=== PATIENT | male | born 1990 | race Two or more races ===

== ENCOUNTER 2025-05-15 18:35 | Emergency (ER) | payer BC, MEDICAID, SELFPAY ==
[2025-05-15 19:23] VITALS: BP 126/83; PULSE 105; RESP 18; TEMP 37.3; O2SAT 99
[2025-05-15 19:24] VITALS: BMI 26.6
--- NOTE | 2025-05-15 20:13 | EDNOTE_ITS ---
ED Skin Abcess FB-RME/HPI General Chief complaint: Skin/Abscess/Foreign Body Stated complaint: DRY, PATCHY SKIN RJ ELBOWS/KNEES Time Seen by Provider: 05/15/25 19:49 Arrival date/time: 05/15/25 18:35 34M with no significant PMH presents to ED with intermittent dry/scaly patches on elbows and knees. Patient has tried different creams from PCP w/o relief. Patient has not seen specialist. Limitations: no limitations Related Data Allergies Allergy/AdvReac Type Severity Reaction Status Date / Time No Known Allergies Allergy Verified 05/15/25 18:37 Review of Systems Review of Systems Systems Reviewed: All systems reviewed, normal except as documented Integumentary/Breasts Skin/Breast: Reports as per HPI and Reports rash Past Medical History Past Medical History CARDIAC: Negative Cardiac Disorders or Congestive Heart Failure RESPIRATORY: Negative Chronic Obstructive Pulmonary Disease (COPD) or Asthma GENITOURINARY: Negative Renal Disease ENDOCRINE: Negative Diabetes Mellitus Type 1 or Diabetes Mellitus Type 2 HEMATOLOGIC: Negative Sickle Cell Disease Social History SMOKING STATUS: Never smoker ED Exam General Limitations: Present no limitations General appearance: Present alert and in no apparent distress Head Head exam: Present atraumatic Neck Neck exam: Present normal inspection, full ROM and trachea midline Chest Chest inspection: Present normal inspection and symmetric chest wall rise Extremities Exam Extremities exam: Present normal inspection and full ROM Neurological Exam Neurological exam: Present alert and oriented X3 Psychiatric Psychiatric exam: Present normal affect and normal mood Skin Skin exam: Present warm, dry, intact, normal color and rash Course Quality Measures none Vital Signs Vital signs: Vital Signs Temperature 99.1 F 05/15/25 19:23 Pulse Rate 105 H 05/15/25 19:23 Respiratory Rate 18 05/15/25 19:23 Blood Pressure 126/83 05/15/25 19:23 Pulse Oximetry (%) 99 05/15/25 19:23 Oxygen Delivery Method Room Air 05/15/25 19:23 O2 at 99% on RA and WNLs Skin / Abscess / Foreign Body MDM Narrative MDM Narrative:: 34M with no significant PMH presents to ED with intermittent dry/scaly patches on elbows and knees. Patient has tried different creams from PCP w/o relief. Patient has not seen specialist. Physical exam reveals discrete scaly/silver patches on elbows and knees (extensor surfaces). Patient is afebrile, calm, and alert. Counseled need to see dye box operator/corporate services manager for official diagnosis of psoriasis and likely systemic treatment. Patient data External records reviewed:: [facility] previous records Clinical information provided by:: patient Social determinants that could affect healthcare access:: none Patient has the following chronic illnesses:: none How is presenting disease/condition affected by chronic disease/condition?: no chronic disease Evaluation data The following diagnostics were reviewed and interpreted by me:: other (specify) (none) Lab and/or radiology exams considered but not ordered:: not ordered Interpretation Summary: n/a Medications / Prescriptions Medications or Prescriptions considered but not ordered:: not ordered Medication administrations:: n/a Consultations Consultation(s) initiated? (list below): No Diagnosis Skin/Abscess Differential Diagnosis: abscess of skin or subcutaneous tissue, viral exanthem, dermatophytosis, urticaria, herpes zoster, allergic reaction to drug, cellulitis, eczema, insect bites, impetigo, contact dermatitis and other (psoriasis) Most likely diagnosis given after review of the tests above:: psoriasis Admission Indicated Admission indicated?: not indicated Admission Request Was there a request for admission?: No Disposition Plan Disposition Plan: Discharge Discharge Attestation Discharge Attestation: The patient and all family members were given an opportunity to ask questions and understood the discharge instructions. Discharge instructions specifically effects, indications for sooner follow up or return to the emergency department, and the expected course of current diagnosis. Patient condition: Stable Discharge Plan Plan Patient Disposition: HOME (Self Care) Discharge Disposition comment: Stable Problem List Clinical Impression: Psoriasis Patient/Caregiver Discharge Instructions Education Materials: What Is Psoriasis?, Managing Psoriasis, ED Psoriasis Additional Instructions: Please follow-up with PCP within 24-48 hours and return immediately if symptoms worsen. Need to see dye box operator/corporate services manager for management. Print Language: Salvadorean Stand Alone Forms: Patient Portal Info Letter LOIS/ALLIE Supervising Physician LOIS/ALLIE Supervising Physician: Dr. Prater
== END 2025-05-15 20:00 | disposition home or self-care (01) ==
PROVIDERS: Emergency Provider Emergency Medicine
DX: L40.9 Psoriasis, unspecified (principal)
CPT/HCPCS: 99281

== ENCOUNTER 2025-07-03 11:33 | Emergency (ER) | payer OTHER, SELFPAY ==
[2025-07-03 11:45] VITALS: BP 134/82; PULSE 105; RESP 19; TEMP 36.5; O2SAT 96
--- NOTE | 2025-07-03 11:45 | PC.NURSE ---
Pt. here from work to bed 3, pt. cut his 2nd,3rd,4th right fingers off on tractor fan at work. Pt. states he was wiping leaves off the fan. Pt.'s boss Rox here bedside with pt. Pt. states pain to right 3 fingers is a 9/10. Pt. brought the top to 1 finger in water in a water bottle. Pt. calm and relaxed at this time.
--- NOTE | 2025-07-03 11:46 | XR_ITS ---
Examination: Hand, right 3 views Technique: Hand AP, oblique, lateral 3 views Date and time of exam: July 03, 2025, 1147 hours INDICATIONS: Amputation lacerations today. FINDINGS: Amputation second digit at the level of the proximal aspect distal phalanx Amputation third digit, comminuted fractures displaced off the distal aspect middle phalanx third digit Amputation with small fracture fragments distal phalanx fourth digit No dislocation IMPRESSION: Amputation fractures second third and fourth digits
--- NOTE | 2025-07-03 12:01 | PD.EDWOUND ---
ED Wound/Laceration-RME/HPI General Chief Complaint: Wound/Laceration Stated Complaint: CUT OFF 3 FINGERS IN FAN ON TRACTOR Time Seen by Provider: 07/03/25 11:41 Arrival date/time: 07/03/25 11:33 RME / HPI RME / HPI narrative: 34 year old male with no stated medical history presents to the ED for evaluation of right hand injury today occurring prior to arrival. States he was cleaning a tractor fan when he accidentally got too close, resulting in injury to the second third and fourth digits. No other injuries reported. States his last tetanus was ~ 10 years ago. Related Data Allergies Allergy/AdvReac Type Severity Reaction Status Date / Time No Known Allergies Allergy Verified 07/03/25 11:37 Review of Systems Review of Systems Systems Reviewed: All systems reviewed, normal except as documented Past Medical History Past Medical History CARDIAC: Negative Cardiac Disorders or Congestive Heart Failure RESPIRATORY: Negative Chronic Obstructive Pulmonary Disease (COPD) or Asthma GENITOURINARY: Negative Renal Disease ENDOCRINE: Negative Diabetes Mellitus Type 1 or Diabetes Mellitus Type 2 HEMATOLOGIC: Negative Sickle Cell Disease Social History SMOKING STATUS: Never smoker ED Exam Narrative Physical exam: GENERAL APPEARANCE: alert and oriented x 4, well-developed, well-nourished HEENT: Normocephalic, atraumatic; pupils equal, round, reactive to light; EOMI; mucous membranes pink, moist; oropharynx clear NECK: Supple LUNGS: CTABL; no wheezes, no rales, no rhonchi HEART: Regular rate, regular rhythm; normal S1, S2; no murmurs ABDOMEN: non distended; normal BS; soft, no tenderness, no guarding, no rebound; no masses, no organomegaly, no hernia EXTREMITIES: Missing fingertips of the right hand digits 2 3 and 4, the distal phalanges are fractures, exposed, and avulsed. The avulsion includes nail and nail bed to digits 2 3 4. The distal phalange on the third finger was dislocated and reduced to normal anatomical position ; no edema NEUROLOGIC: awake; alert and oriented x4 PSYCHIATRIC: appropriate mood and affect SKIN: warm, dry, normal color; no rashes Course Quality Measures none Orders Category Date Time Status Referral - Reeling Operator Stat Cons 07/03/25 12:58 Active XR hand comp RT min 3V Stat Exams 07/03/25 11:46 Completed Drug Screen,Urine Stat Lab 07/03/25 14:51 Completed LORazepam [Ativan Inj] Med 07/03/25 14:31 Discontinued 1 mg IVP X1 ONE Lidocaine 1% Vial 20 ml [Xylocaine 1% 20 ML] Med 07/03/25 12:10 Discontinued 20 ml INFL X1 ONE Morphine* Inj Med 07/03/25 11:45 Discontinued 4 mg IVP X1 ONE Morphine* Inj Med 07/03/25 14:10 Discontinued 4 mg IVP X1 ONE Ondansetron Inj [Zofran Inj] Med 07/03/25 11:45 Discontinued 4 mg IVP X1 ONE Ondansetron Inj [Zofran Inj] Med 07/03/25 14:10 Discontinued 4 mg IVP X1 ONE TET,DIP/PERT AC (Adult)-Tdap [Boostrix Adult (Tdap) Med 07/03/25 11:45 Discontinued Vacc] 0.5 ml IMI .ONCE ONE ceFAZolin/D5W 2 GM IV [Ancef 2gm Ivpb] Med 07/03/25 11:45 Discontinued 2 gm in 100 ml IV X1 Vital Signs Vital signs: Vital Signs Temperature 97.7 F 07/03/25 11:45 Pulse Rate 105 H 07/03/25 11:45 Respiratory Rate 19 07/03/25 11:45 Blood Pressure 134/82 H 07/03/25 11:45 Pulse Oximetry (%) 96 07/03/25 11:45 Oxygen Delivery Method Room Air 07/03/25 11:45 Pulse ox is 96% on room air which is adequate. PROCEDURES: Nerve Block Nerve Block 1: Time out performed: No Local Anesthetic: lidocaine 1% Amount of anesthesia used (mL): 7 Side: right (hand, second third and fourth digits ) Nerve Blocks: digital Procedure Successful: Yes Patient Tolerated Procedure: well and no complications Complications: none Wound / Laceration MDM Narrative MDM Narrative:: IJohanne, dao scribing for and in the presence of Dr. Torres. 1216: Transfer nurse made aware of plan to transfer to a facility with ortho and hand surgeon. 1356: I spoke with ortho Dr. Castellanos at [facility]. Discussed patients PMHx, HPI, ED course, exam findings, and radiology results. Patient is accepted for transfer. Patient data External records reviewed:: [facility] previous records Clinical information provided by:: patient Social determinants that could affect healthcare access:: none Patient has the following chronic illnesses:: None reported How is presenting disease/condition affected by chronic disease/condition?: no chronic disease Evaluation data The following diagnostics were reviewed and interpreted by me:: radiology exam(s) Lab and/or radiology exams considered but not ordered:: None Interpretation Summary: Ordering Physician: Khadijah Torres MD Date of Service: 07/03/25 Procedure(s): XR hand comp RT min 3V Accession Number(s): [id number] cc: Rinku Oleary MD; Khadijah Torres MD~ Examination: Hand, right 3 views Technique: Hand AP, oblique, lateral 3 views Date and time of exam: July 03, 2025, 1147 hours INDICATIONS: Amputation lacerations today. FINDINGS: Amputation second digit at the level of the proximal aspect distal phalanx Amputation third digit, comminuted fractures displaced off the distal aspect middle phalanx third digit Amputation with small fracture fragments distal phalanx fourth digit No dislocation IMPRESSION: Amputation fractures second third and fourth digits Dictated By: Rinku Oleary MD Signed By: <Electronically signed by Rinku Oleary MD in OV> 07/03/25 1209 Medications / Prescriptions Medications or Prescriptions considered but not ordered:: None Medication administrations:: Medication Administration History Discontinued Medications Diphtheria/Tetanus/Acell Pertussis (Diphth,Pertuss(Acell),Tet Vac 0.5 Ml Syr- Adult) 0.5 ml IMi .ONCE ONE Stop: 07/03/25 11:46 Last Admin: 07/03/25 12:21 Dose: 0.5 ml Documented By: ED Cefazolin Sodium (Ancef 2gm Ivpb) 2 gm in 100 mls @ 200 mls/hr IV X1 ONE Stop: 07/03/25 12:14 Last Infusion: 07/03/25 13:02 Dose: Infused Documented By: Admin: 07/03/25 12:32 Dose: 200 mls/hr Documented By: ED Lidocaine HCl (Lidocaine Hcl 1% 20 Ml Vial) 20 ml INFL X1 ONE Stop: 07/03/25 12:11 Last Admin: 07/03/25 13:20 Dose: 20 ml Documented By: ED Comments: used by Dr. Torres and Dr. Velasco. Lorazepam (Lorazepam 2 Mg/Ml Vial) 1 mg IVP X1 ONE Stop: 07/03/25 14:32 Last Admin: 07/03/25 14:37 Dose: 1 mg Documented By: ED Morphine Sulfate (Morphine Sulf Inj 4 Mg/Ml Vial) 4 mg IVP X1 ONE Stop: 07/03/25 11:46 Last Admin: 07/03/25 12:20 Dose: 4 mg Documented By: ED Morphine Sulfate (Morphine Sulf Inj 4 Mg/Ml Vial) 4 mg IVP X1 ONE Stop: 07/03/25 14:11 Last Admin: 07/03/25 14:18 Dose: 4 mg Documented By: ED Ondansetron HCl (Ondansetron Inj 2 Mg/Ml Inj 2 Ml) 4 mg IVP X1 ONE Stop: 07/03/25 11:46 Last Admin: 07/03/25 12:17 Dose: 4 mg Documented By: ED Ondansetron HCl (Ondansetron Inj 2 Mg/Ml Inj 2 Ml) 4 mg IVP X1 ONE; Protocol Stop: 07/03/25 14:11 Last Admin: 07/03/25 14:14 Dose: 4 mg Documented By: ED See above Consultations Consultation(s) initiated? (list below): Yes Consultation #1 (Physician, Specialty, Details): See MDM Diagnosis Wound Differential Diagnosis: laceration and avulsion of skin Most likely diagnosis given after review of the tests above:: Traumatic avulsion Open fracture right hand fingers 2, 3, and 4 Admission Indicated Admission indicated?: not indicated Admission Request Was there a request for admission?: No Disposition Plan Disposition Plan: Transfer Discharge Plan Plan Patient Disposition: [facility] Facility Pt Being Transferred to: [facility] Service Needed for Transfer: Orthopedics Patient condition on transfer: Stable Prescriptions/Referrals Referrals: No Primary/Family,Physician [Primary Care Provider] - In 1 week Problem List Clinical Impression: Traumatic avulsion of nail plate of finger, Open fracture of right hand Impression comment: Open fracture of right hand fingers 2, 3, and 4 Patient/Caregiver Discharge Instructions Print Language: Greek Stand Alone Forms: Ivy Award Info., Patient Portal Info Letter
[2025-07-03] MEDS: ONDANSETRON INJ 2 MG/ML INJ 2 ML 4 MG IVP ×2 (12:17→14:14)
[2025-07-03] MEDS: MORPHINE SULF INJ 4 MG/ML VIAL IVP ×2 (12:20→14:18)
[2025-07-03] MEDS: DIPHTH,PERTUSS(ACELL),TET VAC 0.5 ML SYR- ADULT IMi (12:21)
[2025-07-03] MEDS: ceFAZolin/D5W 2 GM IV 2 GM/100 ML BAG IV (12:32)
--- NOTE | 2025-07-03 13:05 | PC.NURSE ---
Dressing applied to pt.'s right 2nd,3rd and 4th fingers wet to dry per Dr. Torres's instructions. Pt. tolerated well. Pt.'s and pt.'s boss are bedside.
--- NOTE | 2025-07-03 13:17 | PC.CC ---
Spoke with Dr. Torres, she is requesting a transfer for ortho transfer for this patient.
[2025-07-03] MEDS: LIDOCAINE HCL 1% 20 ML VIAL INFL (13:20)
--- NOTE | 2025-07-03 13:36 | PC.CC ---
Sent transfer packet to [facility] transfer center.
--- NOTE | 2025-07-03 13:55 | PC.CC ---
Addendum entered by Hillary Salmon, RN 07/03/25 15:24: @1444 received call from Lenora in the transfer center at [facility]. Per Lenora, patient was accepted ED to ED with Dr. Marcos accepting. Report to [phone]. Dr. Torres notified of acceptance Original Note: Called [facility]'s transfer center and spoke with Kierra regarding transfer. Kierra requested to speak with Dr. Torres, transferred call.
[2025-07-03 14:04] VITALS: BP 142/99; PULSE 110; RESP 13; TEMP 37.7; O2SAT 97
--- NOTE | 2025-07-03 14:16 | PC.NURSE ---
Eden with [employer] insurance called [phone], pt. states it's ok to give her information, Rox leonard states that is the company's insurance, gave all requested information, Eden states thank you.
--- NOTE | 2025-07-03 14:30 | PC.NURSE ---
informed Dr. Torres that pt.'s heart rate is 130's to 140's.
[2025-07-03 14:32] VITALS: PULSE 135
[2025-07-03] MEDS: LORazepam 2 MG/ML VIAL 1 MG IVP (14:37)
[2025-07-03 15:25] LABS: Amphetamine/Methamp Scrn,U Negative (Negative); Barbiturate Screen,Urine Negative (Negative); Benzodiazepines Screen,Urine Negative (Negative); Benzoylecgonine Screen, Ur Negative (Negative); Fentanyl Screen,Urine Negative (Negative); Opiate Screen,Urine Positive (Negative); THC Screen,Urine Negative (Negative)
[2025-07-03 16:29] VITALS: BP 120/94; PULSE 127; RESP 17; TEMP 37; O2SAT 96
--- NOTE | 2025-07-03 17:33 | PC.NURSE ---
gave report to silo tender Dangelo with [facility], Dangelo taking pt. to [facility].
--- NOTE | 2025-07-03 17:35 | PC.NURSE ---
called [facility] [phone] spoke with Gayle CLEMONS and gave her report, answered all her questions, she states thank you. Informed her pt. was just going out the back door.
== END 2025-07-03 17:35 | disposition short-term general hospital (02) ==
PROVIDERS: Emergency Provider Emergency Medicine
DX: S68.120A Partial traumatic metacarpophalangeal amputation of right index finger, initial encounter (principal); S68.122A Partial traumatic metacarpophalangeal amputation of right middle finger, initial encounter; S68.124A Partial traumatic metacarpophalangeal amputation of right ring finger, initial encounter; W45.8XXA Other foreign body or object entering through skin, initial encounter; Y93.89 Activity, other specified; Y92.89 Other specified places as the place of occurrence of the external cause; Y99.0 Civilian activity done for income or pay; Z23 Encounter for immunization; Z75.1 Person awaiting admission to adequate facility elsewhere
CPT/HCPCS: 64450; 73130; 80307; 90471; 90715; 96374; 96375; 96376; 99284; J0689; J2060; J2270; J2405; J3490

== ENCOUNTER 2025-07-13 08:22 | Emergency (ER) | payer OTHER, SELFPAY ==
[2025-07-13 08:24] VITALS: BMI 26.6
[2025-07-13 08:30] VITALS: BP 124/85; PULSE 80; RESP 18; TEMP 36.8; O2SAT 97
--- NOTE | 2025-07-13 08:35 | EDNOTE_ITS ---
ED Wound/Laceration-RME/HPI General Chief Complaint: Wound Recheck / Suture Removal Stated Complaint: WANTING TO CHANGE THE GAUZE OUT FOR R HAND Time Seen by Provider: 07/13/25 08:25 Source: patient Arrival date/time: 07/13/25 08:22 34-year-old male with no known medical history presents to the emergency room for a wound recheck after having amputation fractures of his 2nd, 3rd and 4th digit 10 days ago. Mode of arrival: ambulatory Limitations: no limitations Related Data Allergies Allergy/AdvReac Type Severity Reaction Status Date / Time No Known Allergies Allergy Verified 07/13/25 08:26 Review of Systems Review of Systems Systems Reviewed: All systems reviewed, normal except as documented Constitutional Constitutional: Reports system reviewed and no additional complaints, except as documented, Denies fatigue, Denies fever(s), Denies headache(s) and Denies weakness Eyes Eyes: Reports system reviewed and no additional complaints, except as documented, Denies blurry vision and Denies change in vision ENT Ears, Nose, Mouth, and Throat: Reports system reviewed and no additional complaints, except as documented, Denies otalgia, Denies headache(s), Denies nasal congestion, Denies throat swelling and Denies vertigo Cardiovascular Cardiovascular: Reports system reviewed and no additional complaints, except as documented, Denies chest pain, Denies dyspnea and Denies dyspnea on exertion Respiratory Respiratory: Reports system reviewed and no additional complaints, except as documented, Denies chest congestion, Denies cough, Denies dyspnea, Denies dyspnea on exertion and Denies wheezing Gastrointestinal Gastrointestinal: Reports system reviewed and no additional complaints, except as documented, Denies abdominal pain, Denies cramping, Denies nausea and Denies vomiting Genitourinary Genitourinary: Reports system reviewed and no additional complaints, except as documented, Denies dysuria and Denies hematuria Musculoskeletal Musculoskeletal: Reports system reviewed and no additional complaints, except as documented and Denies back pain Integumentary/Breasts Skin/Breast: Reports system reviewed and no additional complaints, except as documented and Reports wounds Neurologic Neurologic: Reports system reviewed and no additional complaints, except as documented, Denies confusion, Denies headache(s), Denies lack of coordination, Denies vertigo and Denies weakness Psychiatric Psychiatric: Reports system reviewed and no additional complaints, except as documented, Denies anxiety, Denies confusion, Denies depression, Denies pa ranoia, Denies suicidal ideation and Denies tactile hallucinations Endocrine Endocrine: Reports system reviewed and no additional complaints, except as documented and Denies fatigue Hematologic/Lymphatic Hematologic/Lymphatic: Reports system reviewed and no additional complaints, except as documented and Denies lymphadenopathy Allergic/Immunologic Allergic/Immunologic: Reports system reviewed and no additional complaints, except as documented, Denies throat swelling, Denies urticaria and Denies wheezing Past Medical History Past Medical History CARDIAC: Negative Cardiac Disorders or Congestive Heart Failure RESPIRATORY: Negative Chronic Obstructive Pulmonary Disease (COPD) or Asthma GENITOURINARY: Negative Renal Disease ENDOCRINE: Negative Diabetes Mellitus Type 1 or Diabetes Mellitus Type 2 HEMATOLOGIC: Negative Sickle Cell Disease Social History SMOKING STATUS: Never smoker ED Exam General Limitations: Present no limitations General appearance: Present alert and in no apparent distress Head Head exam: Present atraumatic Eye Eye exam: Present normal appearance, PERRL and EOMI ENT ENT exam: Present normal exam, normal oropharynx and mucous membranes moist Neck Neck exam: Present normal inspection, full ROM and trachea midline Chest Chest inspection: Present normal inspection and symmetric chest wall rise Respiratory Respiratory exam: Present normal lung sounds bilaterally Cardiovascular Cardiovascular exam: Present regular rate, normal rhythm and normal heart sounds Abdominal Exam Abdominal exam: Present soft and normal bowel sounds Extremities Exam Extremities exam: Present normal inspection and full ROM Back Exam Back exam: Present normal inspection and full ROM Neurological Exam Neurological exam: Present alert, oriented X3 and CN II-XII intact Psychiatric Psychiatric exam: Present normal affect and normal mood Skin Skin exam: Present warm, dry, intact and normal color Course Quality Measures none Vital Signs Vital signs: Vital Signs Temperature 98.2 F 07/13/25 08:30 Pulse Rate 80 07/13/25 08:30 Respiratory Rate 18 07/13/25 08:30 Blood Pressure 124/85 H 07/13/25 08:30 Pulse Oximetry (%) 97 07/13/25 08:30 Oxygen Delivery Method Room Air 07/13/25 08:30 Wound / Laceration MDM Narrative MDM Narrative:: 34-year-old male with no known medical history presents to the emergency room for a wound recheck after having amputation fractures of his 2nd, 3rd and 4th digit 10 days ago. Patient is hemodynamically stable and in no apparent distress I had a conversation with the patient. This patient was transferred to [facility] for orthopedics and a hand surgeon. The patient was told to follow-up with them in 1 week for a wound recheck as well as a dressing change. This patient had amputation of the 2nd, 3rd and 4th digits. I spoke to the patient and told him that there is very important to follow-up with his hand surgeon regarding this injury. I evaluated the patient's and and it appears to be healing appropriately. I told the patient that it is still very important and I highly recommend for him to follow-up in [place] with a hand surgeon and pensions retirement plan specialist. The patient states that he just wanted my opinion and he will drive to [place] and not miss his appointment. The patient also stated that if he is driving to [place] he would just have his wound cleaned and redressed over there. I spoke to the patient and told him that for any other reason to do not hesitate to return to the emergency room for any signs of infection as he can follow-up in [place] and also use our emergency room. Patient was discharged and educated to follow-up with primary care provider in the next 24 to 48 hours and return to the emergency room for any evidence of worsening signs or symptoms Patient data External records reviewed:: [facility] previous records Clinical information provided by:: patient Social determinants that could affect healthcare access:: none Patient has the following chronic illnesses:: No chronic How is presenting disease/condition affected by chronic disease/condition?: no chronic disease Evaluation data The following diagnostics were reviewed and interpreted by me:: lab results and radiology exam(s) Lab and/or radiology exams considered but not ordered:: Labs and radiology exams considered and ordered Interpretation Summary: N/A Medications / Prescriptions Medications or Prescriptions considered but not ordered:: No medication given Medication administrations:: No medication given Consultations Consultation(s) initiated? (list below): No Diagnosis Wound Differential Diagnosis: laceration, abscess and other (Encounter for wound recheck) Most likely diagnosis given after review of the tests above:: Encounter for wound recheck Admission Indicated Admission indicated?: not indicated Admission Request Was there a request for admission?: No Disposition Plan Disposition Plan: Discharge Discharge Attestation Discharge Attestation: The patient and all family members were given an opportunity to ask questions and understood the discharge instructions. Discharge instructions specifically effects, indications for sooner follow up or return to the emergency department, and the expected course of current diagnosis. Patient condition: Stable Discharge Plan Plan Patient Disposition: HOME (Self Care) Discharge Disposition comment: Stable Problem List Clinical Impression: Encounter for wound re-check Patient/Caregiver Discharge Instructions Education Materials: ED Wound Care Additional Instructions: Please follow-up with your wound care clinic in the next 24 to 48 hours For any evidence of worsening signs or symptoms return to the emergency room immediately Print Language: Yemeni Stand Alone Forms: Ivy Award Info., Work/School Release, Patient Portal Info Letter PA/POWDER LOADER Supervising Physician PA/POWDER LOADER Supervising Physician: Dr. Aguilar
== END 2025-07-13 09:18 | disposition home or self-care (01) ==
LOC: SERX 08:49
PROVIDERS: Emergency Provider Nurse Practitioner Family
DX: S68.120D Partial traumatic metacarpophalangeal amputation of right index finger, subsequent encounter (principal); S68.122D Partial traumatic metacarpophalangeal amputation of right middle finger, subsequent encounter; S68.124D Partial traumatic metacarpophalangeal amputation of right ring finger, subsequent encounter; X58.XXXD Exposure to other specified factors, subsequent encounter
CPT/HCPCS: 99281